=== PATIENT | female | born 1980 | race Two or more races ===

== ENCOUNTER 2019-04-05 03:57 | Emergency (ER) | payer MEDICAID ==
[~2019-04-05] VITALS: Ht 175.3 cm; Wt 68.0 kg
--- NOTE | 2019-04-05 04:10 | NUR ---
EVITA FOUND IN HER CAR. TO ER BED 3. SLEEPING BUT EASILY ARROUSABLE, ORIENTEDX4. NO RESP DISTRESS NOTED, BREATHING EVEN AND UNLABORED. C/O GEN ABDOMINAL PAIN ON ALL QUADRANT. PT REPORT NAUSEA AND VOMITNG. IV LINE STARTED ON R AC 20G. BLOOD DRAWN AND GIVEN TO COSTUME DESIGN TEACHER. AT BEDSIDE HOWEVER PT WAS NOT READY, WILL CALL BACK MD FOR EVAL.
[2019-04-05 04:18] LABS: BASOPHILS % (AUTO) 0.3 % (0.0-2.0); EOSINOPHILS % (AUTO) 0.1 % (0.0-6.0); HEMATOCRIT 40 % (33-45); HEMOGLOBIN 13.9 g/dL (11.5-14.8); LYMPHOCYTES # (AUTO) 0.7 /CMM (0.8-4.8); LYMPHOCYTES % (AUTO) 8.1 % (20.0-44.0); MEAN CORPUSCULAR HGB CONC 35 g/dl (31.0-36.0); MEAN CORPUSCULAR VOLUME 93 fL (82-100); MONOCYTES # (AUTO) 0.3 /CMM (0.1-1.30); NEUTROPHILS # (AUTO) 7.9 /CMM (1.8-8.9); NEUTROPHILS % (AUTO) 88.5 % (43.0-81.0); PLATELET COUNT (AUTO) 293 /CMM (150-450); RED BLOOD CELL COUNT(AUTO) 4.27 MIL/uL (4.0-5.2); WHITE BLOOD COUNT (AUTO) 8.9 K/uL (4.3-11.0)
[2019-04-05 04:30] LABS: CALCIUM, SERUM 8.8 mg/dL (8.5-10.1); CREATININE 0.9 mg/dL (0.6-1.3); POTASSIUM 3.1 mmol/L (3.5-5.1)
[2019-04-05] MEDS ORDERED: IV NS 0.9% 1,000 ML BAG IV ONE (04:30)
[2019-04-05 04:33] LABS: ALBUMIN 3.8 g/dL (3.4-5.0); BILIRUBIN,DIRECT 0.2 mg/dL (0.0-0.2); BILIRUBIN,TOTAL 0.9 mg/dL (0.2-1.0); TOTAL PROTEIN, SERUM 7.7 g/dL (6.4-8.2)
[2019-04-05] MEDS ORDERED: LIDOCAINE VISCOUS 2% UD 15 ML UDC ONE (04:41)
[2019-04-05] MEDS ORDERED: PANTOPRAZOLE 40 MG TABLET.DR PO ONE ×2 (04:41→05:00)
[2019-04-05] MEDS ORDERED: MAG HYDROX/AL HYDROX/SIMETH 30 ML UDC ONE (04:41)
[2019-04-05] MEDS ORDERED: ONDANSETRON HCL/PF 4 MG/2 ML VIAL ONE (04:45)
[2019-04-05] MEDS ORDERED: LIDOCAINE VISCOUS 2% UD 15 ML UDC MM ONE (05:00)
[2019-04-05] MEDS ORDERED: ONDANSETRON HCL/PF - ER 4 MG/2 ML VIAL IV ONE (05:00)
[2019-04-05] MEDS ORDERED: MAG HYDROX/AL HYDROX/SIMETH 30 ML UDC PO ONE (05:00)
[2019-04-05 05:38] LABS: APPEARANCE,URINE Slightly Cloudy (CLEAR); BILIRUBIN,URINE Negative (NEGATIVE); BLOOD, URINE Negative Ery/uL (NEGATIVE); COLOR,URINE Yellow (YELLOW); KETONES,URINE 80 (NEGATIVE); LEUKOCYTE ESTERASE ,URINE Negative (NEGATIVE); NITRITE, URINE Negative (NEGATIVE); PROTEIN,URINE Negative (NEGATIVE); UGLUCOSE Negative (NEGATIVE); UROBILINOGEN,URINE 0.2 EU/dL (0.2)
[2019-04-05 05:42] LABS: PH,URINE >9.0 (5.0-8.0)
[2019-04-05] MEDS ORDERED: KETOROLAC TROMETHAMINE INJ 30 MG/ML VIAL ONE (05:59)
--- NOTE | 2019-04-05 06:03 | NUR ---
PT STILL UNRELIEF FROM ABDOMINAL PAIN. MD MADE AWARE. VERBAL ORDER RECEIVED FOR TORADOL 30MG IV. NOTED AND CARRIED OUT
[2019-04-05] MEDS ORDERED: ALPRAZOLAM 0.5 MG TABLET PO ONE (06:30)
[2019-04-05] MEDS ORDERED: KETOROLAC TROMETHAMINE INJ 30 MG/ML VIAL IV ONE (06:30)
[2019-04-05] MEDS ORDERED: POTASSIUM CHLORIDE 20 MEQ TAB.PRT.SR PO ONE ×2 (06:39→07:00)
[2019-04-05] MEDS ORDERED: ALPRAZOLAM 0.5 MG TABLET ONE (06:39)
[2019-04-05 06:46] LABS: BACTERIA,URINE None seen /HPF (None Seen); WBC,URINE 0-2 /HPF (0-3)
[2019-04-05 06:47] LABS: SQUAMOUS EPITHELIAL CELL,UR Many /HPF (None Seen); URINE AMORPHOUS PHOSPHATES Many /HPF (None Seen)
[2019-04-05] MEDS ORDERED: MORPHINE SULFATE INJ 4 MG/ML DISP.SYRIN ONE (07:13)
--- NOTE | 2019-04-05 07:20 | NUR ---
PT ENDORSED TO [facility] FOR [facility]
[2019-04-05] MEDS ORDERED: MORPHINE SULFATE INJ 2 MG/ML DISP.SYRIN IV ONE (07:30)
--- NOTE | 2019-04-05 08:26 | NUR ---
STILL WAITING ON THE US TECH
--- NOTE | 2019-04-05 09:54 | NUR ---
AA/OX4, denies pain at this time. BREATHING EVEN AND UNLABORED, NO SOB NOTED, PATIENT LIVES IN CAR BUT REFUSES TO BE SEEN BY COUNTY TAX ASSESSOR, Patient given written and verbal discharge instructions. Patient verbalizes understanding of instructions. Patient is ambulatory with steady gait. Refuses offer of fpc placement. Patient given list of available shelters in surrounding area.
[2019-04-05 10:09] VITALS: BP 101/58
== END 2019-04-05 10:09 | disposition home or self-care (01) ==
LOC: ER 04:04
DX: K80.20 Calculus of gallbladder without cholecystitis without obstruction (principal); F41.9 Anxiety disorder, unspecified; F12.10 Cannabis abuse, uncomplicated; E87.6 Hypokalemia; E86.0 Dehydration
CPT/HCPCS: 36415; 74176; 76705; 80048; 80076; 80305; 81001; 83690; 84702; 85025; 96361; 96374; 96375; 99284; J1885; J2270; J2405; J7030; 81000-TC

== ENCOUNTER 2020-02-06 10:50 | Emergency (ER) | payer MEDICAID ==
--- NOTE | 2020-02-06 10:58 | NUR ---
CALLED TO TRIAGE,NO ANSWER
--- NOTE | 2020-02-06 11:07 | NUR ---
CALLED TO TRIAGE,NO ANSWER
--- NOTE | 2020-02-06 11:16 | NUR ---
CALLED IN ED WAITING ROOM. NO ANSWER.
--- NOTE | 2020-02-06 11:18 | NUR ---
LEFT W/OUT BEING TRIAGE.
== END 2020-02-06 11:19 | disposition left against medical advice (07) ==
LOC: ER 10:50
DX: Z53.21 Procedure and treatment not carried out due to patient leaving prior to being seen by health care provider (principal)

== ENCOUNTER 2020-02-06 11:30 | Emergency (ER) | payer MEDICAID ==
[~2020-02-06] VITALS: Ht 167.6 cm; Wt 65.8 kg
--- NOTE | 2020-02-06 11:39 | NUR ---
CAME IN FOR RFA PAIN AND SWELLING S/P GETTING A TATTOO 4 DAYS AGO, TO ER BED 9, HOOKED TO MONITOR, PROVIDED W WARM BLANKET, AWAITING MD WIN.
--- NOTE | 2020-02-06 11:53 | NUR ---
DR ZEPEDA AT BEDSIDE
[2020-02-06] MEDS ORDERED: SILVER SULFADIAZINE CREAM 25 GM TUBE TP ONE (12:00)
[2020-02-06] MEDS ORDERED: SILVER SULFADIAZINE CREAM 25 GM TUBE ONE (12:16)
[2020-02-06 13:15] VITALS: BP 115/67
--- NOTE | 2020-02-06 13:15 | NUR ---
Patient discharged to home in stable condition. Written and verbal after care instructions given. Patient verbalizes understanding of instruction.
== END 2020-02-06 13:15 | disposition home or self-care (01) ==
LOC: ER 11:30
DX: T22.011A Burn of unspecified degree of right forearm, initial encounter (principal); L03.113 Cellulitis of right upper limb; J45.909 Unspecified asthma, uncomplicated; X08.8XXA Exposure to other specified smoke, fire and flames, initial encounter; Y93.89 Activity, other specified; Y92.89 Other specified places as the place of occurrence of the external cause; Y99.8 Other external cause status

== ENCOUNTER 2020-02-21 14:29 | Emergency (ER) | payer MEDICAID ==
[~2020-02-21] VITALS: Ht 165.1 cm; Wt 61.2 kg
--- NOTE | 2020-02-21 14:45 | NUR ---
patient came in to the er c/o "RLE pain-did Cardio workout and felt a pop on my leg- Hard to walk". On room air, breathing evenly and unlabored. connected to the monitor accordingly.
[2020-02-21] MEDS ORDERED: IBUPROFEN 600 MG TABLET PO ONE (15:24)
[2020-02-21] MEDS: IBUPROFEN 600 MG TABLET PO ONE (15:28)
--- NOTE | 2020-02-21 16:03 | NUR ---
lamination technician at bedside for exam
[2020-02-21 17:27] VITALS: BP 101/61
--- NOTE | 2020-02-21 17:27 | NUR ---
Patient discharged to home in stable condition. Written and verbal after care instructions given. Patient verbalizes understanding of instruction.
== END 2020-02-21 17:27 | disposition home or self-care (01) ==
LOC: ER 14:31
DX: M79.662 Pain in left lower leg (principal); R60.0 Localized edema; J45.909 Unspecified asthma, uncomplicated; Z90.49 Acquired absence of other specified parts of digestive tract
CPT/HCPCS: 73590-TC; 93971-TC

== ENCOUNTER 2021-03-14 18:42 | Emergency (ER) | payer MEDICAID, OTHER ==
[~2021-03-14] VITALS: Ht 165.1 cm; Wt 67.1 kg
--- NOTE | 2021-03-14 18:50 | NUR ---
called for triage not in the waiting room.
[2021-03-14 19:00] VITALS: BP 99/56
--- NOTE | 2021-03-14 19:01 | NUR ---
LACHO AT BEDSIDE FOR EVAL.
[2021-03-14] MEDS ORDERED: LIDOCAINE 1% INJ 50 ML MDV IJ ONE ×2 (19:27→19:30)
[2021-03-14] MEDS ORDERED: IBUP-1955 PO (20:44)
[2021-03-14] MEDS ORDERED: TRAM50TA2 PO (20:44)
[2021-03-14] MEDS ORDERED: SULF1TAB48 PO (20:44)
[2021-03-14] MEDS ORDERED: CEPH500C2 PO (20:44)
[2021-03-14] MEDS ORDERED: IBUPROFEN 600 MG TABLET ONE (20:54)
[2021-03-14] MEDS ORDERED: SULFAMETH/TRIMETH 800/160 MG 1 UDTAB TABLET ONE (20:54)
[2021-03-14] MEDS ORDERED: CEPHALEXIN MONOHYDRATE 500 MG CAPSULE PO ONE ×2 (20:54→21:00)
[2021-03-14] MEDS ORDERED: SULFAMETH/TRIMETH 800/160 MG 1 UDTAB TABLET PO ONE (21:00)
[2021-03-14] MEDS ORDERED: IBUPROFEN 600 MG TABLET PO ONE (21:00)
--- NOTE | 2021-03-14 21:04 | NUR ---
Patient discharged to home in stable condition. Written and verbal after care instructions given. Patient verbalizes understanding of instruction.
== END 2021-03-14 21:16 | disposition home or self-care (01) ==
LOC: ER 18:42
DX: K40.90 Unilateral inguinal hernia, without obstruction or gangrene, not specified as recurrent (principal); L02.31 Cutaneous abscess of buttock
CPT/HCPCS: 10060; 99284; A6403; J3490

== ENCOUNTER 2021-08-26 20:17 | Emergency (ER) | payer MEDICAID ==
[~2021-08-26] VITALS: Ht 167.6 cm; Wt 61.2 kg
[~2021-08-26 20:17] MED LIST: CEPH500C2 PO; IBUP-1955 PO; SULF1TAB48 PO; TRAM50TA2 PO
--- NOTE | 2021-08-26 22:45 | NUR ---
BIBSELF C/O RIGHT THIGH ABSCESS X 1 WEEK PAIN OF 6/10 NO SIGN OF SOB, V/S CHECKED AND RECORDED WILL CONT TO MONITOR
[2021-08-26] MEDS ORDERED: LIDOCAINE 1%-EPI 1:100,000 20 ML VIAL ONE (22:49)
--- NOTE | 2021-08-26 23:00 | NUR ---
AT BED SIDE
[2021-08-26] MEDS ORDERED: SULF1TAB48 PO (23:05)
[2021-08-26] MEDS ORDERED: CEPH500C2 PO (23:05)
[2021-08-26] MEDS ORDERED: CEPHALEXIN MONOHYDRATE 500 MG CAPSULE PO ONE ×2 (23:17→23:30)
[2021-08-26] MEDS ORDERED: SULFAMETH/TRIMETH 800/160 MG 1 UDTAB TABLET ONE (23:18)
[2021-08-26] MEDS ORDERED: SULFAMETH/TRIMETH 800/160 MG 1 UDTAB TABLET PO ONE (23:30)
--- NOTE | 2021-08-26 23:40 | NUR ---
Patient discharged to home in stable condition. Written and verbal after care instructions given. Patient verbalizes understanding of instruction. PT ambulatory with a steady gait
[2021-08-26 23:46] VITALS: BP 124/80
== END 2021-08-26 23:46 | disposition home or self-care (01) ==
LOC: ER 20:18
DX: L02.415 Cutaneous abscess of right lower limb (principal); J45.909 Unspecified asthma, uncomplicated; Z79.891 Long term (current) use of opiate analgesic; Z79.1 Long term (current) use of non-steroidal anti-inflammatories (NSAID)
CPT/HCPCS: 10060; 99283; A6403; A6407; J3490